=== PATIENT | male | born 1990 | race Caucasian/White ===

== ENCOUNTER 2025-01-31 19:56 | Emergency (ER) | payer MEDICAID, SELFPAY ==
[2025-01-31] VITALS (20 sets, daily range): BP systolic 112–173; BP diastolic 53–99; PULSE 78–98; RESP 13–31; TEMP 36.6; O2SAT 94–97
--- NOTE | 2025-01-31 19:45 | RT.EKG_ITS ---
APPROVED REPORT Exam: Resting ECG Reason for Exam: dizzy Patient Location: E HR:95 bpm ECG Measurements Heart Rate 95 AXIS OK 180 P 55 QRSd 101 QRS 36 QT 316 T 30 QTc 396 Conclusion Sinus rhythm...normal P axis, V-rate 60- 99 Consider anteroseptal infarct...Q >30mS, dimin R, V1-V2 ST elevation, consider inferior injury...ST >0.08mV, II III aVF
--- NOTE | 2025-01-31 20:08 | ED.GENADUL_ITS ---
Discharge Plan Disposition Patient Disposition: Home Condition: Stable Discharge Details Clinical Impression: Chest pain, Blunt head trauma, Contusion of ankle, right Primary Care Provider: Unknown,Unknown ED Provider: Lobo Burgess Home Meds and New Rx's Prescriptions: Continued ondansetron 4 mg tablet,disintegrating 4 mg PO Q8H hydroxyzine HCl 50 mg tablet 50 mg PO BID buspirone 5 mg tablet 5 mg PO BID hydrochlorothiazide 25 mg tablet 25 mg PO DAILY sucralfate 1 gram tablet 1 g PO TID famotidine 20 mg tablet 20 mg PO BID amlodipine 10 mg tablet 10 mg PO DAILY cholecalciferol (vitamin D3) 25 mcg (1,000 unit) capsule 25 mcg PO DAILY fluocinolone 0.025 % cream 1 applic topical BID guanfacine 1 mg tablet 1 mg PO DAILY ibuprofen 200 mg capsule 200 mg PO Q6H PRN ketoconazole 2 % cream 1 applic topical BID losartan 50 mg tablet 50 mg PO DAILY melatonin 3 mg capsule 3 mg PO HS PRN mometasone 0.1 % solution 1 applic topical DAILY omega-3 fatty acids 1,000 mg capsule 1,000 mg PO DAILY oxazepam 10 mg capsule 10 mg PO DAILY omeprazole 20 mg capsule,delayed release(DR/EC) 20 mg PO DAILY Discharge Instructions Additional Instructions: Your imaging and blood work did not show any concerning findings. Follow-up with your primary care provider especially if symptoms continue within 1 to 2 weeks. If you feel more ill or have severe worsening pain return to the emergency department for reevaluation. If you are feeling unsteady please use your walker so you do not fall. HPI General Mode of arrival: ambulatory . Date/Time Provider Initiated Documentation: 01/31/25 20:04 . Limitations to Documentation: no limitations . Information obtained by: patient . History of Present Illness 34 year old M presents to the emergency department with the chief complaint of chest pain, described as moderate, Patient started experiencing this hour(s) (6) and it has been constant. No relieving factors improve symptom(s), No exacerbating factors reported . Patient notes denies fever/chills and nausea/vomiting. Patient did receive the following treatments prior to arrival, none Related Data Home Medications ?Medication ?Instructions ?Recorded ?Confirmed amlodipine 10 mg tablet 10 mg PO DAILY 01/30/25 01/31/25 buspirone 5 mg tablet 5 mg PO BID 01/30/25 01/31/25 cholecalciferol (vitamin D3) 25 25 mcg PO DAILY 01/30/25 01/31/25 mcg (1,000 unit) capsule famotidine 20 mg tablet 20 mg PO BID 01/30/25 01/31/25 fluocinolone 0.025 % topical cream 1 applic topical BID 01/30/25 01/31/25 guanfacine 1 mg tablet 1 mg PO DAILY 01/30/25 01/31/25 hydrochlorothiazide 25 mg tablet 25 mg PO DAILY 01/30/25 01/31/25 hydroxyzine HCl 50 mg tablet 50 mg PO BID 01/30/25 01/31/25 ibuprofen 200 mg capsule 200 mg PO Q6H PRN 01/30/25 01/31/25 ketoconazole 2 % topical cream 1 applic topical BID 01/30/25 01/31/25 losartan 50 mg tablet 50 mg PO DAILY 01/30/25 01/31/25 melatonin 3 mg capsule 3 mg PO HS PRN 01/30/25 01/31/25 mometasone 0.1 % topical solution 1 applic topical DAILY 01/30/25 01/31/25 omega-3 fatty acids 1,000 mg 1,000 mg PO DAILY 01/30/25 01/31/25 capsule omeprazole 20 mg capsule,delayed 20 mg PO DAILY 01/30/25 01/31/25 release ondansetron 4 mg disintegrating 4 mg PO Q8H 01/30/25 01/31/25 tablet oxazepam 10 mg capsule 10 mg PO DAILY 01/30/25 01/31/25 sucralfate 1 gram tablet 1 g PO TID 01/30/25 01/31/25 Allergies Allergy/AdvReac Type Severity Reaction Status Date / Time No Known Allergies Allergy Verified 01/31/25 20:06 General Stated Complaint: Chest/Rib JACKIE: 3 Review of Systems All systems reviewed & are unremarkable except as noted in HPI and below Constitutional Constitutional: Denies chills, Denies fever(s) and Denies weakness Cardiovascular Cardiovascular: Reports chest pain and Denies dyspnea Respiratory Respiratory: Denies cough and Denies dyspnea Gastrointestinal Gastrointestinal: Denies abdominal pain, Denies nausea and Denies vomiting Neurologic Neurologic: Denies weakness Psychiatric Psychiatric: Denies depression Exam Const General: no acute distress Orientation: alert HENMT Head: normal to inspection Ears: external ears normal General nose exam: external nose normal Mouth: moist mucous membranes Eyes General: appearance normal, both eyes and all related structures Neck Neck: normal visual inspection Resp Effort & Inspection: normal respiratory effort and able to speak in complete sentences Auscultation: clear to auscultation bilaterally Cardio Jugular venous pressure: no JVD Rate: regular rate Heart Sounds: no murmurs GI Palpation: soft and nontender Skin General skin exam: no rashes or lesions noted Neuro General: patient alert and patient oriented x3 Extrem General: normal to inspection Psych Mental Status: mental status grossly normal Course Vital Signs Vital signs: Vital Signs Temperature 36.6 C 01/31/25 20:00 Pulse 92 H 01/31/25 20:00 Respiratory Rate 20 01/31/25 20:00 Blood Pressure 173/99 H 01/31/25 20:00 Pulse Oximetry 95 01/31/25 20:00 Temperature 36.6 C 01/31/25 20:00 Pulse 92 H 01/31/25 20:00 Respiratory Rate 20 01/31/25 20:00 Blood Pressure 173/99 H 01/31/25 20:00 Pulse Oximetry 95 01/31/25 20:00 Pain Level 7 01/31/25 20:00 Medical Decision Making 34-year-old male with a history of hypertension and bipolar who fractured his right ankle several weeks ago he was in a walking boot and states he has felt chest pain for the last 6 hours and fell and hit his head on the door. He did not lose consciousness. Says he has some pain in the right lateral ankle with limited range of motion due to pain but is not sure if this is new or not. He has intact sensation and pulses. He has no abdominal tenderness. He has clear lungs, no JVD. He has reproducible anterior chest tenderness. I suspect chest wall pain but given his recent lack of mobilizing well we will obtain a CT of the chest to evaluate for PE and also a CT of his head given he fell and hit his head and has a mild headache. Will check CBC, CMP and troponins as well. Labs unremarkable, patient did have a fall in the bathroom he states that he lost balance and fell over in his head. He did not lose consciousness. He states that after the fall his right lateral neck was hurting so bad on a cervical spine CT. Imaging results pending. I suspect that he is having trouble with his walking boot as a cause of some imbalance when he is walking. Will likely provide him a walker if he is discharged cta negative and xray without fx. He is ambulating well with a walker without complaitns, he is stable for d/c and will f/u with his pcp/express care, return precautions given ECG Data Attestation: I personally reviewed and interpreted this ECG (s) as follows: Prior ECG tracings: not available for review Interpretation: sinus rate of 95 pr 180 no stemi Quality:SDOH Health Related Social Needs: No Data to Display PFSH All Active Problems (Updated 01/31/25 @ 21:25 by Lobo Burgess MD) Contusion of ankle, right (Acute) Blunt head trauma (Acute) Chest pain (Acute) Social History Smoking/Tobacco Use Status: Current every day Tobacco Type: cigarettes Smoking risk assessment performed?: Yes Alcohol Intake: never Drug use: Never Substance use type: does not use Housing: other Do you feel safe at home: Yes Do you feel safe in your relationship?: Yes
[2025-01-31 20:17] LABS: Abs Immature Grans 0.02 10^3/uL (0.0-0.06); Absolute Eosinophil Count 0.53 10^3/uL (0.0-0.7); Absolute Lymphocyte Count 2.59 10^3/uL (1.2-3.4); Absolute Monocyte Count 0.62 10^3/uL (0.1-0.8); Absolute Neutrophil Count 4.46 10^3/uL (1.2-6.7); Basophils % 1.2 %; Eosinophils % 6.4 %; HCT 45.7 % (40.0-50.0); HGB 15.9 g/dL (13.5-17.5); Immature Grans % 0.2 %; Lymphocytes % 31.1 %; MCHC 34.8 % (32.0-36.0); MCV 83 fL (80-95); MPV 10.6 fL (8.0-11.0); Monocytes % 7.5 %; Neutrophils % 53.6 %; Platelet Count 179 10^3/uL (130-400); RBC 5.48 10^6/uL (4.36-5.78); RDW 12.3 % (11.8-14.1); RDW-SD 37.3 fL; WBC 8.32 10^3/uL (4.4-10.8)
[2025-01-31 20:33] LABS: Bilirubin Negative (Negative); Blood Negative (Negative); Clarity Clear (Clear); Glucose Negative (Negative); Ketones Negative (Negative); Leukocyte Esterase Negative (Negative); Nitrite Negative (Negative); Urobilinogen 0.2 mg/dL (Up to 0.2); pH 5.5 (5-8)
[2025-01-31 20:35] LABS: ALT 48 U/L (16-63); AST 20 U/L (15-37); Albumin 3.8 g/dL (3.4-5.0); Alkaline Phosphatase 87 U/L (46-116); Anion Gap 10.8 mmol/L (3-11); BUN 16 mg/dL (7-18); Bilirubin, Total 0.3 mg/dL (0.2-1.0); CO2 27.2 mmol/L (21.0-32.0); CREATININE 1.1 mg/dL (0.70-1.30); Calcium 9.5 mg/dL (8.5-10.1); Chloride 104 mmol/L (98-107); Estimated GFR 91.47 (mL/min/1.73m2); Glucose 126 mg/dL (74-106); Magnesium 1.9 mg/dL; Potassium 3.9 mmol/L (3.5-5.1); Sodium 142 mmol/L (136-145); Total Protein 7.1 g/dL (6.4-8.2); Troponin I 8 ng/L (<or=76)
[2025-01-31 20:36] LABS: ETHANOL BLOOD < 3.0 mg/dL (<10)
--- NOTE | 2025-01-31 20:46 | DI.CT_ITS ---
Exam(s) CT HEAD CERVICAL SPINE WO EXAM: CT HEAD CERVICAL SPINE WO CLINICAL HISTORY: fall, pain. TECHNIQUE: Imaging Protocol: Axial computed tomography images with coronal and sagittal reformatted images were created and reviewed COMPARISON: No exams were available for comparison FINDINGS: BRAIN: There are no skull fractures. There is mucosal thickening in all of the paranasal sinuses, both circ umferential and there is also post inflammatory retention cysts in the foot floor of the left maxilla ry sinus. There are, however, no fluid levels in the paranasal sinuses nor within the mastoid air ce lls and middle ear cavities. There is no evidence of intracranial hemorrhage, mass effect, or shift of midline structures. There are no extra-axial fluid collections. The ventricles are not enlarged or shifted and there is no blo od within the ventricular system nor within the basal cisterns. CERVICAL SPINE: There is no evidence of fracture nor listhesis. No significant prevertebral soft tissue swelling. There is no significant facet joint malalignment. No significant osseous lesions evident. IMPRESSION: No acute intracranial findings on this noninfused CT scan of the brain.Chronic pansinusitis but no ac patricia sinus fluid levels at this time. No evidence of cervical spine fracture, malalignment, nor acute compromise of the cervical spinal can al. RADIATION DOSE DELIVERED: 1,537.79mGy.cm Total DLP DATA REPOSITORY: All CT scans at this facility are submitted to the National Radiology Data Registry (NRDR) Dose Index Registry (DIR) with the [employer] (A[employer]). RADIATION OPTIMIZATION: All CT scans at this facility use at least one of these dose optimization te chniques: automated exposure control; mA and/or kV adjustment per patient size (includes targeted exa ms where dose is matched to clinical indication); or iterative reconstruction.
--- NOTE | 2025-01-31 20:46 | DI.CT_ITS ---
Exam(s) CT CHEST PE CTA EXAM: CT CHEST PE CTA CLINICAL HISTORY: chest pain, recent immobilization. TECHNIQUE: Imaging Protocol: CT angiography of the chest was performed using pulmonary embolus tom col. Multi planar reconstructions were performed. CONTRAST MATERIAL: Intravenous: Omnipaque 350 Contrast volume: 100 cc COMPARISON: No exams were available for comparison FINDINGS: CHEST: PULMONARY ARTERIES: There are no intraluminal filling defects to suggest acute pulmonary emboli. LUNGS: There are no infiltrates nor evidence of pulmonary infarction.. There are 2 small benign-appea ring 3 millimeter nodules in the right lung. There are no pleural effusions. MEDIASTINUM: There is no hilar nor mediastinal adenopathy. Visualized thyroid unremarkable. CARDIAC: Heart size is upper normal. There is no pericardial effusion.Caliber of the thoracic aorta is within normal limits. No evidence of aortic dissection, penetrating aortic ulcer nor intramural he matoma. There is no significant shift of the interventricular septum. Incidentally noted is indepen dent origin of the left vertebral artery off of the aortic arch. PARTIALLY VISUALIZED UPPERMOST ABDOMEN: No adrenal masses. No ascites. OSSEOUS: No significant osseous lesions.. IMPRESSION: 1. No evidence of acute pulmonary emboli. No evidence of pulmonary infarction.No pleural effusions. 2. No significant intrathoracic findings. RADIATION DOSE DELIVERED: 387.59mGy.cm Total DLP DATA REPOSITORY: All CT scans at this facility are submitted to the National Radiology Data Registry (NRDR) Dose Index Registry (DIR) with the [employer] ([employer]CR). RADIATION OPTIMIZATION: All CT scans at this facility use at least one of these dose optimization te chniques: automated exposure control; mA and/or kV adjustment per patient size (includes targeted exa ms where dose is matched to clinical indication); or iterative reconstruction.
--- NOTE | 2025-01-31 20:56 | DI.RAD_ITS ---
Exam(s) XR ANKLE RT COMPLETE EXAM: XR ANKLE RT COMPLETE CLINICAL HISTORY: fracture 3 weeks ago, fall. TECHNIQUE: 2D digital imaging was performed. COMPARISON: No exams were available for comparison FINDINGS: 3 views No evidence of fracture of the ankle nor widening of the ankle mortise. No prominent soft tissue swe lling around the ankle. The talar dome is unremarkable. Higher up at the junction of the mid and lower thirds of the tibia there is an area of periosteal cor tical thickening and adjacent soft tissue calcification measuring approximately 1.5 cm long by 0.4 cm width by 0.5 cm AP. IMPRESSION: No evidence of acute ankle fracture. No significant soft tissue swelling around the ankle. Cortical thickening along the medial aspect of the tibial diaphysis with coarse adjacent soft tissue calcification measuring 15 by 4 x 5 mm. Has benign appearance DATA REPOSITORY: RADIATION DOSE DELIVERED:
[2025-01-31] MEDS: Normal Saline - Diluent 50 ML VIAL IJ (20:57)
[2025-01-31] MEDS: Omnipaque 350 MG/ML 100 ML BTL IJ (20:58)
[2025-01-31 21:03] LABS: Lab Add On Test DONE
[2025-01-31] MEDS: Normal Saline 1,000 ML 1000 ML IV (21:10)
[2025-01-31 21:33] LABS: *AMPHETAMINES SCREEN URINE Negative (Negative); *BARBITURATES SCREEN URINE Negative (Negative); *BENZODIAZEPINES SCREEN URINE Negative (Negative); Cannabinoids THC Negative (Negative); Cocaine Screen,Urine Negative (Negative); METHADONE URINE SCREEN Negative (Negative); OPIATES URINE SCREEN Negative (Negative)
[2025-01-31 21:35] LABS: Tricyclic Antidepressants Negative (Negative)
[2025-01-31 21:36] LABS: Troponin I 6 ng/L (<or=76)
--- NOTE | 2025-01-31 21:38 | DI.VRAD_ITS ---
PROCEDURE INFORMATION: Exam: CT Head Without Contrast Exam date and time: 01/31/2025 8:32 PM Age: 34 years old Clinical indication: Other: Fall, pain TECHNIQUE: Imaging protocol: Computed tomography of the head without contrast. COMPARISON: No relevant prior studies available. FINDINGS: Brain: No acute intracranial hemorrhage, mass-effect, midline shift, or extra-axial collection is seen. The kirkpatrick white matter differentiation appears preserved. Cerebral ventricles: The ventricular system and basilar cisterns appear appropriate in size and configuration. Paranasal sinuses: There is patchy mucoperiosteal thickening throughout the visualized paranasal sinuses. Focal soft tissue density material in the left maxillary sinus has an appearance suggesting retained mucus, a mucous retention cyst, or an inflammatory polyp. No air-fluid levels are seen. Mastoid air cells: The mastoid air cells appear well-aerated. Auditory system: The middle ear cavities appear clear. Orbital cavities: The globes and intraorbital structures appear grossly intact. Bones: The bony calvarium appears intact. No depressed skull fracture is seen. Soft tissues: No gross focal scalp hematoma is seen. IMPRESSION: No acute intracranial hemorrhage or depressed skull fracture. PROCEDURE INFORMATION: Exam: CT Cervical Spine Without Contrast Exam date and time: 01/31/2025 8:32 PM Age: 34 years old Clinical indication: Other: Fall, pain TECHNIQUE: Imaging protocol: Computed tomography of the cervical spine without contrast. COMPARISON: No relevant prior studies available. FINDINGS: Limitations: The mid-lower cervical spine is partially obscured by artifact. Bones: No acute cervical fracture or malalignment is seen. No significant cervical stenosis or foraminal narrowing is demonstrated. Lungs: The lung apices appear clear. Thyroid: The thyroid gland is partially excluded from view but appears grossly unremarkable through its visualized portion. Soft tissues: Within the limits of the exam, no gross soft tissue fluid collection is seen in the neck. IMPRESSION: No acute cervical fracture or malalignment is seen. Dictated and Authenticated by: Zaid Stewart MD. Orderin Jenifer Diamond MD
--- NOTE | 2025-01-31 22:22 | DI.VRAD_ITS ---
PROCEDURE INFORMATION: Exam: CTA Chest With Contrast Exam date and time: 01/31/2025 8:38 PM Age: 34 years old Clinical indication: Other: Chest pain, recent immobilization TECHNIQUE: Imaging protocol: Computed tomographic angiography of the chest with contrast. Exam focused on the arteries. 3D rendering (Not supervised by radiologist): MIP and/or 3D reconstructed images were created by the technologist. Contrast material: OMNIPAQUE 350; Contrast volume: 100 ml; Contrast route: INTRAVENOUS (IV); COMPARISON: CT HEAD CERVICAL SPINE WO 01/31/2025 8:32 PM FINDINGS: Limitations: Extensive streak artifact. Pulmonary arteries: No pulmonary embolism identified. Aorta: No thoracic aortic aneurysm or dissection. Thyroid: Thyroid gland partially excluded from view but grossly unremarkable through its visualized portion. Lungs: No pulmonary consolidation. No pulmonary consolidation Pleural spaces: No pleural effusion or pneumothorax. No pleural effusion or pneumothorax. Heart: Normal-sized heart. Lymph nodes: No pathologically enlarged mediastinal or hilar lymph nodes. Bones/joints: Lower ribs partially excluded from view and incompletely evaluated. Otherwise, no acute fracture seen among the bones of the chest. Spinal degenerative change with marginal osteophytes and small Schmorl's nodes at several lower thoracic levels. Soft tissues: No gross soft tissue mass or fluid collection seen in the chest wall. IMPRESSION: No active disease is seen in the chest. Dictated and Authenticated by: Zaid Stewart MD. Orderin Jenifer Diamond MD
--- NOTE | 2025-01-31 22:25 | DI.VRAD_ITS ---
PROCEDURE INFORMATION: Exam: XR Right Ankle Exam date and time: 01/31/2025 8:49 PM Age: 34 years old Clinical indication: Other: Fracture 3 weeks ago, fall TECHNIQUE: Imaging protocol: Radiologic exam of the right ankle. Views: 3 or more views. COMPARISON: No relevant prior studies available. FINDINGS: Bones/joints: Three views of the right ankle reveal no acute fracture or dislocation. There is focal cortical thickening along the medial margin of the tibial shaft with coarse calcification in the adjacent soft tissues, nonspecific but possibly from old trauma. There is a small posterior heel spur at the insertion of the Achilles tendon. Soft tissues: No gross focal soft tissue swelling is demonstrated. IMPRESSION: 1. No acute fracture or dislocation is seen. 2. Cortical thickening along the medial aspect of the tibial shaft with coarse adjacent soft tissue calcification. Although nonspecific, a sequela of prior trauma could produce this appearance. No frankly aggressive features are demonstrated. Dictated and Authenticated by: Zaid Stewart MD. Orderin Jenifer Diamond MD
--- NOTE | 2025-02-01 06:58 | NUR.NOTE ---
Addendum entered by Kassi Lamar 02/01/25 07:22: Faxed to [facility] authorization form and demographic sheet. Got a ride for patient for pickup at 0730. Kayla went to tell patient and he could not be found. [facility] cancelled. Original Note: Access chart to get pt address for [facility]. Nursing Note:
--- NOTE | 2025-02-01 10:56 | NUR.NOTE ---
Access chart to get the discharge diagnosis for the [facility] billing requisition. Nursing Note:
== END 2025-01-31 22:31 | disposition home or self-care (01) ==
PROVIDERS: Emergency Provider Emergency Medicine
DX: S90.01XA Contusion of right ankle, initial encounter (principal); S09.8XXA Other specified injuries of head, initial encounter; F17.210 Nicotine dependence, cigarettes, uncomplicated; E11.9 Type 2 diabetes mellitus without complications; W18.39XA Other fall on same level, initial encounter; Y93.89 Activity, other specified; Y92.89 Other specified places as the place of occurrence of the external cause
CPT/HCPCS: 36415; 71275; 80053; 80307; 82962; 93005; 96360; 99285; 70450; 72125; 73610; 80320; 81003; 83735; 84484; 85025; 93010; J3490